=== PATIENT | female | born 1965 | race Caucasian/White ===

== ENCOUNTER → 2016-08-16 | Outpatient (CLI) | payer BC | LOC: MW.NM 06:18 | PROVIDERS: ATTEND Nurse Practitioner Adult Health | DX: R07.9 Chest pain, unspecified (principal); Z53.9 Procedure and treatment not carried out, unspecified reason ==

== ENCOUNTER 2016-12-02 20:26 | Emergency (ER) | payer BC ==
--- NOTE | 2016-12-02 20:40 | EDM.PDOC ---
ED HPI GENERAL MEDICAL PROBLEM - General Chief Complaint: Lower Extremity Injury/Pain Stated Complaint: PAIN LT ANKLE Time Seen by Provider: 12/02/16 20:30 Source of Information: Reports: Patient History Limitations: Reports: No Limitations - History of Present Illness INITIAL COMMENTS - FREE TEXT/NARRATIVE: HISTORY AND PHYSICAL: History of present illness: [Patient is brought to the emergency room by her daughter with complaints of left foot pain. The patient was pushed over by her dog that was running through the house. She felt like she rolled over the lateral aspect of her left foot falling to the ground. She complains of pain and swelling. No pain with palpation but is experiencing pain with weightbearing and movement of her foot and fourth and fifth toes. No previous surgeries or trauma to this area. No numbness or tingling. No weakness. No other injuries.] Review of systems: As per history of present illness and below otherwise all systems reviewed and negative. Past medical history: As per history of present illness and as reviewed below otherwise noncontributory. Surgical history: As per history of present illness and as reviewed below otherwise noncontributory. Social history: No reported history of drug or alcohol abuse. Family history: As per history of present illness and as reviewed below otherwise noncontributory. Physical exam: HEENT: Atraumatic, normocephalic. Extremities: Mild swelling to left lateral foot. No ecchymosis or erythema. Tender with palpation over 4th and 5th metatarsals. Pedal pulses are strong. Neurovascular unremarkable. Neuro: Awake, alert, oriented.Motor and sensory unremarkable throughout. Exam nonfocal. Diagnostics: [Left foot x-ray] Impression: [fracture of base 5th metatarsal, minimally displaced] Plan: [Patient is placed in a short leg posterior splint without difficulty. We discussed follow-up with orthopedist on Sunday. Rest ice compression and elevation. Wear the splint at all times. [id number] anti-inflammatories and analgesics as needed for discomfort. Return to ER as we discussed.] Definitive disposition and diagnosis as appropriate pending reevaluation and review of above. 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: Musculoskeletal History: Reports: None Neurological History: Reports: None Psychiatric History: Reports: Anxiety Endocrine/Metabolic History: Reports: None Hematologic History: Reports: None Immunologic History: Reports: None Oncologic (Cancer) History: Reports: None Dermatologic History: Reports: None - Infectious Disease History Infectious Disease History: Reports: Chicken Pox - Past Surgical History Female Surgical History: Reports: Section, Hysterectomy Social & Family History - Family History Family Medical History: Noncontributory - Tobacco Use Smoking Status *Q: Never Smoker - Caffeine Use Caffeine Use: Reports: None - Recreational Drug Use Recreational Drug Use: No Review of Systems - Review of Systems Review Of Systems: ROS reveals no pertinent complaints other than HPI. ED EXAM, GENERAL - Physical Exam Exam: See Below Course - Vital Signs Last Recorded V/S: Last Vital Signs Temp 98 F 12/02/16 20:28 Pulse 70 12/02/16 20:28 Resp 18 12/02/16 20:28 BP 170/79 H 12/02/16 20:28 Pulse Ox 98 12/02/16 20:28 - Orders/Labs/Meds Orders: Active Orders 24 hr Category Date Time Status Foot Comp Min 3V Lt [CR] Stat Exams 12/02/16 20:34 Taken Departure - Departure Time of Disposition: 21:30 Disposition: Home, Self-Care 01 Condition: Good Clinical Impression: Metatarsal fracture, Fracture of base of fifth metatarsal bone - Discharge Information Instructions: Crutch Use, [id number], Cast or Splint Care, Znlm-[id number], Metatarsal Fracture Referrals: PCP,None [Primary Care Provider] - Forms: ED Department Discharge Additional Instructions: The following information is given to patients seen in the emergency department who are being discharged to home. This information is to outline your options for follow-up care. We provide all patients seen in our emergency department with a follow-up referral. The need for follow-up, as well as the timing and circumstances, are variable depending upon the specifics of your emergency department visit. If you don't have a primary care physician on staff, we will provide you with a referral. We always advise you to contact your personal physician following an emergency department visit to inform them of the circumstance of the visit and for follow-up with them and/or the need for any referrals to a consulting specialist. The emergency department will also refer you to a specialist when appropriate. This referral assures that you have the opportunity for follow-up care with a specialist. All of these measure are taken in an effort to provide you with optimal care, which includes your follow-up. Under all circumstances we always encourage you to contact your private physician who remains a resource for coordinating your care. When calling for follow-up care, please make the office aware that this follow-up is from your recent emergency room visit. If for any reason you are refused follow-up, please contact the [facility] emergency department at and asked to speak to the emergency department charge nurse. [facility] [address], [address] [place] [address] Coulter of your fracture on Sunday and follow-up according to her instructions. Rest, ice, no weightbearing, wear splint, elevate leg. Xlib-mfv-iuxemtg analgesics and anti-inflammatories as needed for discomfort. Return to the emergency room as needed as discussed. - My Orders Last 24 Hours: My Active Orders 12/02/16 20:34 Foot Comp Min 3V Lt [CR] Stat - Assessment/Plan Last 24 Hours: My Active Orders 12/02/16 20:34 Foot Comp Min 3V Lt [CR] Stat
[2016-12-02 21:50] VITALS: BP 140/78
--- NOTE | 2016-12-04 12:58 | CR ---
EXAM DATE: 12/02/16 PATIENT'S AGE: 51 Patient: JOSE JUAN DURBIN Facility: [place], [place] Site . Site : 1965 Study: XRay Extremity Left FOOT [id number]/26/[id number] 8:55:22 PM Ordering Physician: Doctor Vega Final Report: Indication: Lateral left foot pain Technique: Three views left foot Comparison: None Findings: Bones: Alignment is normal. There is a minimally displaced fracture at the base of the right 5th metatarsal. Small inferior calcaneal enthesophyte noted. Joint spaces: Unremarkable. Soft tissues: Mild lateral soft tissue swelling. Impression: Minimally displaced fracture at the base of the right 5th metatarsal. Dictated by Irene Padilla MD @ Dec 02 2016 8:59PM (Electronic Signature) Report Signed by Proxy. OTIS
== END 2016-12-02 21:45 | disposition home or self-care (01) ==
LOC: MW.ED 20:26
DX: S92.352A Displaced fracture of fifth metatarsal bone, left foot, initial encounter for closed fracture (principal); I10 Essential (primary) hypertension; Z90.710 Acquired absence of both cervix and uterus; X50.9XXA Other and unspecified overexertion or strenuous movements or postures, initial encounter
CPT/HCPCS: 29515; 73630-26-LT; 73630-LT; 99283

== ENCOUNTER 2017-10-07 19:47 | Emergency (ER) | payer BC ==
--- NOTE | 2017-10-07 21:09 | EDM.PDOC ---
ED HPI GENERAL MEDICAL PROBLEM - General Chief Complaint: Lower Extremity Injury/Pain Stated Complaint: PAIN LT LEG Time Seen by Provider: 10/07/17 21:03 Source of Information: Reports: Patient History Limitations: Reports: No Limitations - History of Present Illness INITIAL COMMENTS - FREE TEXT/NARRATIVE: HISTORY AND PHYSICAL: []52-year-old female presents with left leg bruising and cramping History of Present Illness: []Admission saw Dr. Che in the office and was treated She became worse today and she is concerned that there is a blood clot in this leg Review of Systems: As per history of present illness and below otherwise all systems reviewed and negative. Past medical history: As per history of present illness and as reviewed below otherwise noncontributory. Surgical history: As per history of present illness and as reviewed below otherwise noncontributory. Social history: No reported history of drug or alcohol abuse. Family history: As per history of present illness and as reviewed below otherwise noncontributory. Physical exam: Learning oriented female answering questions in full sentences without any shortness of breath she is nontoxic in appearance HEENT: Atraumatic, normocehpalic, pupils reactive, negative for conjunctival pallor or scleral icterus, mucous membranes moist, throat clear, neck supple, nontender, trachea midline. Lungs: Clear to auscultation, breath sounds equal bilaterally, chest non tender. Heart: S1S2, regular, negative for clicks, rubs, or JVD. Abdomen: Soft, nondistended, nontender. Negative for masses or hepatossplenmegaly. Negative for costovertebral tenderness. Pelvis: Stable nontender. Genitourinary: Deferred. Rectal: Deferred Extremities: Atraumatic, negative for cords or calf pain. Some bruising is noted to the posterior left calf. Pedal pulses are intact Neurovascular unremarkable. Neuro: Awake, alert, oriented. Cranial nerves II through XII unremarkable. Cerebellum unremarkable. Motor and sensory unremarkable throughout. Exam nonfocal. Discussed with the patient the ultrasound is negative for DVT Diagnostics: []Venous Doppler Therapeutics: [] Impression: []Bruising left lower leg/calf Plan: []Discharge Using level is at the lower and of normal continue with your supplement 1 tablet daily Follow-up with Dr. Che Definitive disposition and diagnosis as appropriate pending reevaluation and review of above. Onset: Gradual Duration: Day(s): (3) Location: Reports: Lower Extremity, Left Quality: Reports: Throbbing Severity: Moderate Improves with: Reports: None Worsens with: Reports: None Associated Symptoms: Reports: No Other Symptoms left lower leg Pain Score (Numeric/FACES): 6 - Related Data Allergies Allergy/AdvReac Type Severity Reaction Status Date / Time No Known Allergies Allergy Verified 10/07/17 19:52 Home Meds: Home Meds Atenolol 25 mg PO BID 01/22/16 [History] Magnesium 250 mg PO DAILY 10/07/17 [History] Past Medical History - Past Health History Medical/Surgical History: Denies Medical/Surgical History HEENT History: Reports: None Cardiovascular History: Reports: Hypertension Respiratory History: Reports: None Gastrointestinal History: Reports: Diverticulosis Genitourinary History: Reports: None 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 Neurological History: Reports: None Psychiatric History: Reports: Anxiety Endocrine/Metabolic History: Reports: None Hematologic History: Reports: None Immunologic History: Reports: None Oncologic (Cancer) History: Reports: None Dermatologic History: Reports: None - Infectious Disease History Infectious Disease History: Reports: None - Past Surgical History Head Surgeries/Procedures: Reports: None Female Surgical History: Reports: Section, Hysterectomy Social & Family History - Family History Family Medical History: Noncontributory - Tobacco Use Smoking Status *Q: Never Smoker - Caffeine Use Caffeine Use: Reports: None - Recreational Drug Use Recreational Drug Use: No Review of Systems - Review of Systems Review Of Systems: ROS reveals no pertinent complaints other than HPI. ED EXAM, GENERAL - Physical Exam Exam: See Below (see dictation) Course - Vital Signs Last Recorded V/S: Last Vital Signs Temp 36.2 C 10/07/17 21:02 Pulse 72 10/07/17 21:02 Resp 18 10/07/17 21:02 BP 135/76 10/07/17 21:02 Pulse Ox 98 10/07/17 21:02 - Orders/Labs/Meds Orders: Active Orders 24 hr Category Date Time Status Venous Doppler Lwr Ext Lt [US] Stat Exams 10/07/17 19:57 Taken Labs: Laboratory Tests 10/07/17 Range/Units 20:07 Magnesium 1.9 (1.8-2.4) mg/dL Departure - Departure Time of Disposition: 21:07 Disposition: Home, Self-Care 01 Condition: Good Clinical Impression: Leg pain Qualifiers: Laterality: left Qualified Code(s): M79.605 - Pain in left leg - Discharge Information Referrals: Nyla Jaimes DO [Primary Care Provider] - Additional Instructions: The following information is given to patients seen in the emergency department who are being discharged to home. This information is to outline your options for follow-up care. We provide all patients seen in our emergency department with a follow-up referral. The need for follow-up, as well as the timing and circumstances, are variable depending upon the specifics of your emergency department visit. If you don't have a primary care physician on staff, we will provide you with a referral. We always advise you to contact your personal physician following an emergency department visit to inform them of the circumstance of the visit and for follow-up with them and/or the need for any referrals to a consulting specialist. The emergency department will also refer you to a specialist when appropriate. This referral assures that you have the opportunity for followup care with a specialist. All of these measure are taken in an effort to provide you with optimal care, which includes your followup. Under all circumstances we always encourage you to contact your private physician who remains a resource for coordinating your care. When calling for followup care, please make the office aware that this follow-up is from your recent emergency room visit. If for any reason you are refused follow-up, please contact the [facility] emergency department at and asked to speak to the emergency department charge nurse. No blood clot is noted on your ultrasound today Follow-up with Dr. Che at the clinic Any worsening of condition sharpness to chest or difficulty breathing return immediately to the emergency department - My Orders Last 24 Hours: My Active Orders 10/07/17 19:57 Venous Doppler Lwr Ext Lt [US] Stat - Assessment/Plan Last 24 Hours: My Active Orders 10/07/17 19:57 Venous Doppler Lwr Ext Lt [US] Stat
[2017-10-07 21:32] VITALS: BP 130/68
--- NOTE | 2017-10-08 19:06 | US ---
EXAM DATE: 10/07/17 PATIENT'S AGE: 52 Patient: JOSE JUAN DURBIN Facility: [place], [place] Site . Site : 1965 Study: US Extremity Left [id number]/1/[id number] 8:57:32 PM Ordering Physician: Doctor Vega Final Report: INDICATION: lt leg bruising INDICATION: Lower extremity pain and bruising. TECHNIQUE: Ultrasound venous duplex lower left extremity. Compression venous exam was performed using rodriguez-scale, color Doppler, and spectral Doppler analysis. COMPARISON: None. FINDINGS: Sonographic imaging demonstrates the left common femoral, deep femoral, superficial femoral, popliteal, posterior tibial and greater saphenous veins to be fully compressible with normal color Doppler blood flow. IMPRESSION: No DVT identified in the left lower extremity. Dictated by Nick Álvarez MD @ 10/07/2017 9:00:41 PM Dictated by: Nick Álvarez MD @ 10/07/2017 21:00:50 (Electronic Signature) Report Signed by Proxy. OTIS
== END 2017-10-07 21:25 | disposition home or self-care (01) ==
LOC: MW.ED 19:47
DX: S80.12XA Contusion of left lower leg, initial encounter (principal); X58.XXXA Exposure to other specified factors, initial encounter; Z79.899 Other long term (current) drug therapy; I10 Essential (primary) hypertension
CPT/HCPCS: 36415; 83735; 93971-26-LT; 93971-LT; 99283; 99284-25

== ENCOUNTER 2019-01-04 19:59 | Emergency (ER) | payer BC ==
--- NOTE | 2019-01-04 20:15 | EDM.PDOC ---
ED HPI GENERAL MEDICAL PROBLEM - General Chief Complaint: Lower Extremity Injury/Pain Stated Complaint: INJURED KNEE Time Seen by Provider: 01/04/19 20:15 Source of Information: Reports: Patient - History of Present Illness INITIAL COMMENTS - FREE TEXT/NARRATIVE: HISTORY AND PHYSICAL: History of present illness: [Patient was walking her dog, the dog began to kina a Pulling her on the with the leash she slid down 3 steps at 11 AM this morning landing on her right knee pains of right knee pain with ambulation no fever nausea vomiting chills sweats no other pain or injury no head injury or loss of consciousness ] Review of systems: As per history of present illness and below otherwise all systems reviewed and negative. Past medical history: As per history of present illness and as reviewed below otherwise noncontributory. Surgical history: As per history of present illness and as reviewed below otherwise noncontributory. Social history: No reported history of drug or alcohol abuse. Family history: As per history of present illness and as reviewed below otherwise noncontributory. Physical exam: HEENT: Atraumatic, normocephalic, pupils reactive, negative for conjunctival pallor or scleral icterus, mucous membranes moist, throat clear, neck supple, nontender, trachea midline. Lungs: Clear to auscultation, breath sounds equal bilaterally, chest nontender. Heart: S1S2, regular, negative for clicks, rubs, or JVD. Abdomen: Soft, nondistended, nontender. Negative for masses or hepatosplenomegaly. Negative for costovertebral tenderness. Pelvis: Stable nontender. Genitourinary: Deferred. Rectal: Deferred. Extremities: Atraumatic, negative for cords or calf pain. Neurovascular unremarkable. Neuro: Awake, alert, oriented. Cranial nerves II through XII unremarkable. Cerebellum unremarkable. Motor and sensory unremarkable throughout. Exam nonfocal. Diagnostics: [Knee 3 views ] Therapeutics: [Patient refused knee immobilizer or Odell wrapping however she will take crutches Rest ice ibuprofen Follow-up with orthopedist ] Impression: [ right knee injury ] Definitive disposition and diagnosis as appropriate pending reevaluation and review of above. 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 Neurological History: Reports: None Psychiatric History: Reports: Anxiety Endocrine/Metabolic History: Reports: None Hematologic History: Reports: None Immunologic History: Reports: None Oncologic (Cancer) History: Reports: None Dermatologic History: Reports: None - Infectious Disease History Infectious Disease History: Reports: None - Past Surgical History Head Surgeries/Procedures: Reports: None Female Surgical History: Reports: Section, Hysterectomy Social & Family History - Family History Family Medical History: Noncontributory - Caffeine Use Caffeine Use: Reports: None Review of Systems - Review of Systems Review Of Systems: See Below ED EXAM, GENERAL - Physical Exam Exam: See Below Course - Vital Signs Last Recorded V/S: Last Vital Signs Temp 96.6 F 01/04/19 20:20 Pulse 67 01/04/19 20:20 Resp 16 01/04/19 20:20 BP 133/58 L 01/04/19 20:20 Pulse Ox 94 L 01/04/19 20:20 Departure - Departure Time of Disposition: 21:05 Disposition: Home, Self-Care 01 Condition: Good Clinical Impression: Right knee injury - Discharge Information Forms: ED Department Discharge Additional Instructions: Rest Ice 20 minute intervals 3 times daily Ibuprofen 400 mgTimes daily 7-10 days Follow-up with orthopedist, call phone number below to schedule appropriate follow-up [facility] [address], [address] [place] [address] my orthopedic The following information is given to patients seen in the emergency department who are being discharged to home. This information is to outline your options for follow-up care. We provide all patients seen in our emergency department with a follow-up referral. The need for follow-up, as well as the timing and circumstances, are variable depending upon the specifics of your emergency department visit. If you don't have a primary care physician on staff, we will provide you with a referral. We always advise you to contact your personal physician following an emergency department visit to inform them of the circumstance of the visit and for follow-up with them and/or the need for any referrals to a consulting specialist. The emergency department will also refer you to a specialist when appropriate. This referral assures that you have the opportunity for follow-up care with a specialist. All of these measure are taken in an effort to provide you with optimal care, which includes your follow-up. Under all circumstances we always encourage you to contact your private physician who remains a resource for coordinating your care. When calling for follow-up care, please make the office aware that this follow-up is from your recent emergency room visit. If for any reason you are refused follow-up, please contact the [facility] emergency department at and asked to speak to the emergency department charge nurse.
--- NOTE | 2019-01-04 20:48 | CR ---
INDICATION: Fall TECHNIQUE: Right knee 3 views. COMPARISON: None. FINDINGS: Bones: Alignment is normal. No fractures or bone lesions. Joint spaces: Unremarkable. Soft tissues: Unremarkable. IMPRESSION: Unremarkable right knee. Dictated by: Baldomero Ashby MD @ 01/04/2019 20:47:04 (Electronically Signed)
[2019-01-04 21:42] VITALS: BP 126/66; PULSE 69
== END 2019-01-04 21:25 | disposition home or self-care (01) ==
LOC: MW.ED 19:59
DX: S89.91XA Unspecified injury of right lower leg, initial encounter (principal); I10 Essential (primary) hypertension; Z79.899 Other long term (current) drug therapy; W10.9XXA Fall (on) (from) unspecified stairs and steps, initial encounter; Y93.K1 Activity, walking an animal
CPT/HCPCS: 73562-26-RT; 73562-RT; 99283-25

== ENCOUNTER 2020-02-08 14:41 | Emergency (ER) | payer BC ==
[2020-02-08] MEDS ORDERED: Sodium Chloride 0.9% 1,000 ML IV ONE (15:01)
--- NOTE | 2020-02-08 15:25 | EDM.PDOC ---
ED HPI GENERAL MEDICAL PROBLEM - General Chief Complaint: Abdominal Pain Stated Complaint: ABDOMINAL PAIN Time Seen by Provider: 02/08/20 14:45 Source of Information: Reports: Patient History Limitations: Reports: No Limitations - History of Present Illness INITIAL COMMENTS - FREE TEXT/NARRATIVE: HISTORY AND PHYSICAL: History of present illness: Patient is a 54-year-old female who presents to the emergency room with complaints of nausea, right lower quadrant abdominal pain and the sensation of feeling bloated since last night. States the pain fluctuates between dull and sharp stabbing discomfort. Had a small BM this morning, but has not passed gas today and feels bloated. Patient denies any fever, chills, headache, change in vision, syncope or near syncope. Denies any chest pain, back pain, shortness of breath or cough. Denies any vomiting, diarrhea, constipation or dysuria. Has not noted any blood in urine or stool. Denies any vaginal bleeding or discharge. Had a partial hysterectomy in the past. Patient has been eating and drinking appropriately. Review of systems: As per history of present illness and below otherwise all systems reviewed and negative. Past medical history: As per history of present illness and as reviewed below otherwise noncontributory. Surgical history: As per history of present illness and as reviewed below otherwise noncontrib utory. Social history: See social history for further information Family history: As per history of present illness and as reviewed below otherwise noncontributory. Physical exam: General: Well developed and well nourished. Alert and orientated x 3. Nontoxic in appearance and in no acute distress. Vital signs are stable and have been reviewed by me. Nursing notes were reviewed. HEENT: Atraumatic, normocephalic, pupils equal and reactive bilaterally, negative for conjunctival pallor or scleral icterus, mucous membranes moist, TMs normal bilaterally, throat clear, neck supple, nontender, trachea midline. No drooling or trismus noted. No meningeal signs. No hot potato voice noted. Lungs: Clear to auscultation, breath sounds equal bilaterally, chest nontender. Normal work of breathing, no accessory muscles used. Heart: S1S2, regular rate and rhythm without overt murmur Abdomen: Soft, obese, RLQ tenderness. Negative for masses or hepatosplenomegaly. Negative for costovertebral tenderness. Skin: Intact, warm, dry. No lesions or rashes noted. Hematologic: No petechiae or purpra. Mucosa appropriate color and normal nail bed color and refill. Extremities: Atraumatic, moves all extremities per self without difficulty or deficits, negative for cords or calf pain. Neurovascular unremarkable. Neuro: Awake, alert, oriented. Cranial nerves II through XII unremarkable. Cerebellum unremarkable. Motor and sensory unremarkable throughout. Exam nonfocal. Psychiatric: Mood and affect are appropriate. Normal thought process. Answering questions appropriately. Notes: Patient does have a slight leukocytosis, other labs are unremarkable. COVID-[address] of the abdomen and pelvis shows no kidney stones, normal appendix, bilateral ovarian cysts. Patient's pain has improved since being here. I have spoken with the patient/caregiver and discussed today's findings, in addition to providing specific details for plan of care. Recommended she have outpatient ultrasound for further evaluation of the ovarian cyst. the patient is stable for discharge, counseling was provided and we discussed in great detail signs and symptoms that would prompt them to return to the Emergency Department. Medication, follow up and supportive care measures were reviewed and discussed. Voices understanding and is agreeable to plan of care. Denies any further questions or concerns at this time. Diagnostics: CBC, CMP, HCGU, UA, CT abd/pelvis Therapeutics: IV fluids Prescription: None Impression: Ovarian Cyst Plan: 1. Today your CT shows 4.7 x 4.1 cm cyst on the right ovary and a 2.3 x 2.2 cm ovary on the left. Otherwise the CT scan was normal for your kidneys, appendix, bowel, pancreas and liver. At this time an ultrasound was held, if you continue to have pain you should return for reevaluation or follow-up with your SECONDARY MARKET MANAGER. Gentle heat to the area and alternating Tylenol and ibuprofen as we discussed. 2. We encourage you to follow up with your primary care provider and/or recommended specialist in the next few days for re-evaluation and further care/management. 3. If your symptoms should worsen, new symptoms develop or any of the signs and symptoms we discussed should arise please return to the emergency room or call 911 (if needed). Definitive disposition and diagnosis as appropriate pending reevaluation and review of above. - Related Data Allergies Allergy/AdvReac Type Severity Reaction Status Date / Time No Known Allergies Allergy Verified 02/08/20 14:50 Home Meds: Home Meds atenoloL [Atenolol] 25 mg PO BID 01/22/16 [History] Magnesium 500 mg PO DAILY 10/07/17 [History] Ascorbate Calcium [Vitamin C] 1 tab PO ASDIRECTED 02/08/20 [History] Cholecalciferol (Vitamin D3) [Vitamin D] 1 tab PO ASDIRECTED 02/08/20 [History] Past Medical History - Past Health History Medical/Surgical History: Denies Medical/Surgical History HEENT History: Reports: None Cardiovascular History: Reports: Hypertension Respiratory History: Reports: None Gastrointestinal History: Reports: Diverticulosis Genitourinary History: Reports: None 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: Musculoskeletal History: Reports: Fracture Neurological History: Reports: None Psychiatric History: Reports: Anxiety Endocrine/Metabolic History: Reports: None Hematologic History: Reports: None Immunologic History: Reports: None Oncologic (Cancer) History: Reports: None Dermatologic History: Reports: None - Infectious Disease History Infectious Disease History: Reports: None - Past Surgical History Head Surgeries/Procedures: Reports: None Female Surgical History: Reports: Section, Hysterectomy Social & Family History - Family History Family Medical History: Noncontributory - Tobacco Use Tobacco Use Status *Q: Never Tobacco User - Caffeine Use Caffeine Use: Reports: None - Recreational Drug Use Recreational Drug Use: No ED ROS GENERAL - Review of Systems Review Of Systems: Comprehensive ROS is negative, except as noted in HPI. ED EXAM, GI/ABD - Physical Exam Exam: See Below (See dictation) Course - Vital Signs Last Recorded V/S: Last Vital Signs Temp 97.4 F 02/08/20 18:05 Pulse 74 02/08/20 18:05 Resp 18 02/08/20 18:05 BP 133/77 02/08/20 18:05 Pulse Ox 96 02/08/20 18:05 - Orders/Labs/Meds Labs: Laboratory Tests 02/08/20 02/08/20 02/08/20 Range/Units 15:20 15:20 15:30 WBC 13.24 H (4.0-11.0) K/uL RBC 4.44 (4.30-5.90) M/uL Hgb 13.1 (12.0-16.0) g/dL Hct 40.0 (36.0-46.0) % MCV 90.1 (80.0-98.0) fL MCH 29.5 (27.0-32.0) pg MCHC 32.8 (31.0-37.0) g/dL RDW Std Deviation 44.9 (28.0-62.0) fl RDW Coeff of Rory 14 (11.0-15.0) % Plt Count 297 (150-400) K/uL MPV 9.10 (7.40-12.00) fL Neut % (Auto) 66.9 (48.0-80.0) % Lymph % (Auto) 27.6 (16.0-40.0) % Coal % (Auto) 4.6 (0.0-15.0) % Eos % (Auto) 0.7 (0.0-7.0) % Baso % (Auto) 0.2 (0.0-1.5) % Neut # (Auto) 8.9 H (1.4-5.7) K/uL Lymph # (Auto) 3.7 H (0.6-2.4) K/uL Coal # (Auto) 0.6 (0.0-0.8) K/uL Eos # (Auto) 0.1 (0.0-0.7) K/uL Baso # (Auto) 0.0 (0.0-0.1) K/uL Nucleated RBC % 0.0 /100WBC Nucleated RBCs # 0 K/uL Sodium (136-145) mmol/L Potassium (3.5-5.1) mmol/L Chloride (98-107) mmol/L Carbon Dioxide (21.0-32.0) mmol/L BUN (7.0-18.0) mg/dL Creatinine (0.6-1.0) mg/dL Est Cr Clr Drug Dosing mL/min Estimated GFR (MDRD) ml/min Glucose (74-106) mg/dL Calcium (8.5-10.1) mg/dL Total Bilirubin (0.2-1.0) mg/dL AST (15-37) IU/L ALT (14-63) IU/L Alkaline Phosphatase (46-116) U/L Total Protein (6.4-8.2) g/dL Albumin (3.4-5.0) g/dL Globulin (2.6-4.0) g/dL Albumin/Globulin Ratio (0.9-1.6) Urine Color YELLOW Urine Appearance CLEAR Urine pH 6.0 (5.0-8.0) Ur Specific [place] 1.015 (1.001-1.035) Urine Protein NEGATIVE (NEGATIVE) mg/dL Urine Glucose (UA) NEGATIVE (NEGATIVE) mg/dL Urine Ketones NEGATIVE (NEGATIVE) mg/dL Urine Occult Blood TRACE-INTACT H (NEGATIVE) Urine Nitrite NEGATIVE (NEGATIVE) Urine Bilirubin NEGATIVE (NEGATIVE) Urine Urobilinogen 0.2 (<2.0) EU/dL Ur Leukocyte Esterase NEGATIVE (NEGATIVE) Urine RBC 0-2 (0-2/HPF) Urine WBC 0-2 (0-5/HPF) Ur Epithelial Cells FEW (NONE-FEW) Urine Bacteria FEW (NEGATIVE) Urine HCG, Qual NEGATIVE (NEGATIVE) SARS-CoV-2 (PCR) (NOT DETECT) SARS CoV-2 RNA Rapid ABBEY (NEGATIVE) 02/08/20 02/08/20 02/08/20 Range/Units 15:30 15:40 15:40 WBC (4.0-11.0) K/uL RBC (4.30-5.90) M/uL Hgb (12.0-16.0) g/dL Hct (36.0-46.0) % MCV (80.0-98.0) fL MCH (27.0-32.0) pg MCHC (31.0-37.0) g/dL RDW Std Deviation (28.0-62.0) fl RDW Coeff of Rory (11.0-15.0) % Plt Count (150-400) K/uL MPV (7.40-12.00) fL Neut % (Auto) (48.0-80.0) % Lymph % (Auto) (16.0-40.0) % Coal % (Auto) (0.0-15.0) % Eos % (Auto) (0.0-7.0) % Baso % (Auto) (0.0-1.5) % Neut # (Auto) (1.4-5.7) K/uL Lymph # (Auto) (0.6-2.4) K/uL Coal # (Auto) (0.0-0.8) K/uL Eos # (Auto) (0.0-0.7) K/uL Baso # (Auto) (0.0-0.1) K/uL Nucleated RBC % /100WBC Nucleated RBCs # K/uL Sodium 138 (136-145) mmol/L Potassium 3.6 (3.5-5.1) mmol/L Chloride 103 (98-107) mmol/L Carbon Dioxide 24.8 (21.0-32.0) mmol/L BUN 10 (7.0-18.0) mg/dL Creatinine 0.8 (0.6-1.0) mg/dL Est Cr Clr Drug Dosing 74.02 mL/min Estimated GFR (MDRD) > 60.0 ml/min Glucose 112 H (74-106) mg/dL Calcium 8.6 (8.5-10.1) mg/dL Total Bilirubin 0.3 (0.2-1.0) mg/dL AST 14 L (15-37) IU/L ALT 19 (14-63) IU/L Alkaline Phosphatase 81 (46-116) U/L Total Protein 7.1 (6.4-8.2) g/dL Albumin 3.5 (3.4-5.0) g/dL Globulin 3.6 (2.6-4.0) g/dL Albumin/Globulin Ratio 1.0 (0.9-1.6) Urine Color Urine Appearance Urine pH (5.0-8.0) Ur Specific [place] (1.001-1.035) Urine Protein (NEGATIVE) mg/dL Urine Glucose (UA) (NEGATIVE) mg/dL Urine Ketones (NEGATIVE) mg/dL Urine Occult Blood (NEGATIVE) Urine Nitrite (NEGATIVE) Urine Bilirubin (NEGATIVE) Urine Urobilinogen (<2.0) EU/dL Ur Leukocyte Esterase (NEGATIVE) Urine RBC (0-2/HPF) Urine WBC (0-5/HPF) Ur Epithelial Cells (NONE-FEW) Urine Bacteria (NEGATIVE) Urine HCG, Qual (NEGATIVE) SARS-CoV-2 (PCR) NOT DETECTED (NOT DETECT) SARS CoV-2 RNA Rapid ABBEY NEGATIVE (NEGATIVE) Meds: Medications Discontinued Medications Generic Name Dose Route Start Last Admin Trade Name Freq PRN Reason Stop Dose Admin Sodium Chloride 1,000 mls @ 999 mls/hr 02/08/20 15:01 02/08/20 15:34 Normal Saline IV 02/08/20 16:01 999 mls/hr STAT ONE Administration Iopamidol 100 ml 02/08/20 16:42 02/08/20 16:42 Isovue Multipack-370 (76%) IVPUSH 02/08/20 16:43 100 ml ONETIME ONE Administration Departure - Departure Time of Disposition: 17:57 Disposition: Home, Self-Care 01 Clinical Impression: Ovarian cyst Qualifiers: Laterality: bilateral Qualified Code(s): N83.201 - Unspecified ovarian cyst, right side; N83.202 - Unspecified ovarian cyst, left side - Discharge Information Instructions: Ovarian Cyst, [id number] Referrals: Margret Cote NP [Primary Care Provider] - Forms: ED Department Discharge Additional Instructions: The following information is given to patients seen in the emergency department who are being discharged to home. This information is to outline your options for follow-up care. We provide all patients seen in our emergency department with a follow-up referral. The need for follow-up, as well as the timing and circumstances, are variable depending upon the specifics of your emergency department visit. If you don't have a primary care physician on staff, we will provide you with a referral. We always advise you to contact your personal physician following an emergency department visit to inform them of the circumstance of the visit and for follow-up with them and/or the need for any referrals to a consulting specialist. The emergency department will also refer you to a specialist when appropriate. This referral assures that you have the opportunity for follow-up care with a specialist. All of these measure are taken in an effort to provide you with optimal care, which includes your follow-up. Under all circumstances we always encourage you to contact your private physician who remains a resource for coordinating your care. When calling for follow-up care, please make the office aware that this follow-up is from your recent emergency room visit. If for any reason you are refused follow-up, please contact the [facility] Emergency Department at and asked to speak to the emergency department charge nurse. [facility] [address] [place] [id number] [place] [address] Thank you for choosing the [facility] emergency department in [place] for your medical needs today. It was a pleasure caring for you. Today you were seen in the emergency department for abdominal pain. 1. Today your CT shows 4.7 x 4.1 cm cyst on the right ovary and a 2.3 x 2.2 cm ovary on the left. Otherwise the CT scan was normal for your kidneys, appendix, bowel, pancreas and liver. At this time an ultrasound was held, if you continue to have pain you should return for reevaluation or follow-up with your SECONDARY MARKET MANAGER. Gentle heat to the area and alternating Tylenol and ibuprofen as we discussed. 2. We encourage you to follow up with your primary care provider and/or recommended specialist in the next few days for re-evaluation and further care/management. 3. If your symptoms should worsen, new symptoms develop or any of the signs and symptoms we discussed should arise please return to the emergency room or call 911 (if needed). Sepsis Event Note (ED) - Evaluation Sepsis Screening Result: No Definite Risk
[2020-02-08 16:10] LABS: BLOOD UREA NITROGEN,BUN 10 mg/dL (7.0-18.0); CARBON DIOXIDE,CO2 24.8 mmol/L (21.0-32.0); CHLORIDE,CL 103 mmol/L (98-107); GLUCOSE RANDOM 112 mg/dL (74-106); POTASSIUM,K 3.6 mmol/L (3.5-5.1); SODIUM,NA 138 mmol/L (136-145)
[2020-02-08] MEDS ORDERED: Iopamidol 755 MG/ML 500 ML Multipack Bottle IVPUSH ONE (16:42)
--- NOTE | 2020-02-08 17:48 | CT ---
INDICATION: Right lower quadrant abdominal pain. COMPARISON: None. TECHNIQUE: CT abdomen and pelvis with intravenous contrast; coronal and sagittal reformats. FINDINGS: No abnormal intra pulmonary nodular densities through the lung bases. No evidence of pleural effusion. Normal size cardiac silhouette without any evidence of pericardial effusion. No focal hepatic or splenic pathology. No pancreatic pathology. Gallbladder is unremarkable. No adrenal pathology. No kidney stones or obstructive uropathy. No retroperitoneal lymphadenopathy. No evidence of abdominal or pelvic ascites. Normal appendix. No pneumoperitoneum or intestinal obstruction. Status post hysterectomy. A 4.7 x 4.1 cm cyst right adnexa and a 2.3 x 2.2 cm cyst in the left adnexa. No free fluid identified in the cul de sac. IMPRESSION: 1. No kidneys stones or obstructive uropathy. 2. Normal appendix. 3. Bilateral ovarian cysts; pelvic ultrasound suggested for further assessment. 4. Status post hysterectomy. 5. The cause for the patient`s right lower quadrant abdominal pain is not evident on this CT study. Please note that all CT scans at this facility use dose modulation, iterative reconstruction, and/or weight-based dosing when appropriate to reduce radiation dose to as low as reasonably achievable. Dictated by Sudhir Lew MD @ Feb 08 2020 5:38PM Signed by Dr. Sudhir Lew @ Feb 08 2020 5:47PM
[2020-02-08 19:11] VITALS: BP 133/77; PULSE 74
== END 2020-02-08 18:10 | disposition home or self-care (01) ==
LOC: MW.ED 14:41
DX: N83.202 Unspecified ovarian cyst, left side (principal); N83.201 Unspecified ovarian cyst, right side; I10 Essential (primary) hypertension; Z20.828 Contact with and (suspected) exposure to other viral communicable diseases; Z79.899 Other long term (current) drug therapy
CPT/HCPCS: 74177; 80053; 81001; 81025; 85025; 87635; 99284; J7030; Q9967; U0002

== ENCOUNTER 2020-05-30 23:09 | Emergency (ER) | payer BC ==
--- NOTE | 2020-05-31 00:05 | EDM.PDOC ---
ED HPI GENERAL MEDICAL PROBLEM - General Chief Complaint: Cardiovascular Problem Stated Complaint: HIGH BLOOD PRESSURE Time Seen by Provider: 05/30/20 23:42 - History of Present Illness INITIAL COMMENTS - FREE TEXT/NARRATIVE: HISTORY AND PHYSICAL: History of present illness: Is a 54-year-old female with a history significant for hypertension who presents ER today secondary to an elevated blood pressure at home. Patient reports her blood pressure was 165/106 and she got concerned and came to the ER. Patient reports that her blood pressure is usually in the range of 130/80. Patient reports that she was asymptomatic at that time. Patient has any fevers, shakes, chills, nausea, vomiting, diarrhea, dysuria, frequency, urgency, chest pain, shortness of breath, diaphoresis, double vision, blurred vision. Patient reports that she did have a slight headache with tension in her neck. Patient reports that this began prior to checking her blood pressure. Patient reports that she only takes atenolol 25 mg twice a day for her hypertension. Patient reports that when her blood pressure was elevated she took 2 additional doses over the course of approximately 1 hour and her blood pressure remained elevated so she came to the ED for further evaluation. Review of systems: As per history of present illness and below otherwise all systems reviewed and negative. Past medical history: As per history of present illness and as reviewed below otherwise noncontributory. Surgical history: As per history of present illness and as reviewed below otherwise noncontributory. Social history: No reported history of drug or alcohol abuse. Family history: As per history of present illness and as reviewed below otherwise noncontributory. Physical exam: This patient was seen and evaluated during the 2019 SARS-CoV-2 novel coronavirus pandemic period. Community viral transmission is ongoing at time of this encounter and the emergency department is operating under pandemic response procedures. Constitutional: Patient is oriented to person, place, and time. Appears well- developed and well-nourished. No distress. HEENT: Moist mucous membranes Head: Normocephalic and atraumatic Eyes: Right eye exhibits no discharge. Left eye exhibits no discharge. No scleral icterus Neck: Normal range of motion. No tracheal deviation present. Cardiovascular: Normal rate and regular rhythm. Pulmonary: Effort normal, no respiratory distress. Abdominal: No distention Musculoskeletal: Normal range of motion Neurologic: Alert and oriented to person, place and time. Skin: [place], warm and dry. Psychiatric: Normal mood and affect. Behavior is normal. Judgment and thought content normal. Nursing note and vital signs have been reviewed Blood pressure repeated in the ED 136/62 heart rate 79. Repeat blood pressure 138/64 heart rate 78 Assessment and plan: This is a 54-year-old female who presents ER today secondary to elevated blood pressure while at home checked on her wrist with her blood pressure machine. Patient reports that she took an additional 50 mg of atenolol over the course of approximately 1 hour period. Patient reports that she is asymptomatic and said no chest pain and her elevated blood pressure was incidentally found. Patient's blood pressure here in the ED with blood pressure cuff was back to her normal range and he feels much more comfortable at this time. Patient is requesting to be discharged she will follow up with her primary care physician tomorrow for reevaluation of any changes of her blood pressure medications. Patient understand that she will need to return to the ED if she develops any new or concerning symptoms. Reassessment at the time of disposition demonstrates that the patient is in no acute distress. The patient has remained stable throughout the entire ED visit and is without objective evidence for acute process requiring urgent intervention or hospitalization. The patient is stable for discharge, counseling is provided as documented above, discussed symptomatic treatment and specific conditions for return. I have spoken with the patient/caregiver and discussed todays findings, in addition to providing specific details for the plan of care. Questions are answered and there is agreement with the plan. Definitive disposition and diagnosis as appropriate pending reevaluation and review of above. - Related Data Allergies Allergy/AdvReac Type Severity Reaction Status Date / Time No Known Allergies Allergy Verified 05/30/20 23:19 Home Meds: Home Meds atenoloL [Atenolol] 25 mg PO BID 01/22/16 [History] Magnesium 500 mg PO DAILY 10/07/17 [History] Cholecalciferol (Vitamin D3) [Vitamin D] 1 tab PO ASDIRECTED 02/08/20 [History] Past Medical History - Past Health History Medical/Surgical History: Denies Medical/Surgical History HEENT History: Reports: None Cardiovascular History: Reports: Hypertension Respiratory History: Reports: None Gastrointestinal History: Reports: Diverticulosis Genitourinary History: Reports: None 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: Musculoskeletal History: Reports: Fracture Neurological History: Reports: None Psychiatric History: Reports: Anxiety Endocrine/Metabolic History: Reports: None Hematologic History: Reports: None Immunologic History: Reports: None Oncologic (Cancer) History: Reports: None Dermatologic History: Reports: None - Infectious Disease History Infectious Disease History: Reports: Chicken Pox - Past Surgical History Head Surgeries/Procedures: Reports: None Female Surgical History: Reports: Section, Hysterectomy Social & Family History - Family History Family Medical History: No Pertinent Family History - Tobacco Use Tobacco Use Status *Q: Never Tobacco User - Caffeine Use Caffeine Use: Reports: None - Recreational Drug Use Recreational Drug Use: No ED ROS GENERAL - Review of Systems Review Of Systems: See Below ED EXAM, GENERAL - Physical Exam Exam: See Below Course - Vital Signs Last Recorded V/S: Last Vital Signs Temp 97.3 F 05/30/20 23:20 Pulse 85 05/30/20 23:20 Resp 20 05/30/20 23:20 BP 162/89 H 05/30/20 23:20 Pulse Ox 96 05/30/20 23:20 Departure - Departure Time of Disposition: 00:04 Disposition: Home, Self-Care 01 Condition: Good Clinical Impression: Hypertension Qualifiers: Hypertension type: essential hypertension Qualified Code(s): I10 - Essential (primary) hypertension Instructions: Hypertension, Adult, [id number] Referrals: Margret Cote NP [Primary Care Provider] - Additional Instructions: You were seen and evaluated in the ER today secondary to your elevated blood pressure at home. Your blood pressure here in the ED appears to have normalized after taking your additional atenolol 25 mg x 2 doses. Please make an appointment to see your family doctor the next 1 to 2 days to repeat your blood pressure to decide whether or not they want to adjust your hypertensive medications. Please return to the ER if you start developing any new or concerning symptoms such as severe headaches, chest pain, double vision, slurred speech, weakness to your upper or lower extremities on your left or right side. The following information is given to patients seen in the emergency department who are being discharged to home. This information is to outline your options for follow-up care. We provide all patients seen in our emergency department with a follow-up referral. The need for follow-up, as well as the timing and circumstances, are variable depending upon the specifics of your emergency department visit. If you don't have a primary care physician on staff, we will provide you with a referral. We always advise you to contact your personal physician following an emergency department visit to inform them of the circumstance of the visit and for follow-up with them and/or the need for any referrals to a consulting specialist. The emergency department will also refer you to a specialist when appropriate. This referral assures that you have the opportunity for follow-up care with a specialist. All of these measure are taken in an effort to provide you with optimal care, which includes your follow-up. Under all circumstances we always encourage you to contact your private physician who remains a resource for coordinating your care. When calling for follow-up care, please make the office aware that this follow-up is from your recent emergency room visit. If for any reason you are refused follow-up, please contact the [facility] Emergency Department at and asked to speak to the emergency department charge nurse. [facility] - [facility] [address] [place] [id number] [facility] [address] [place] [id number] Sepsis Event Note (ED) - Evaluation Sepsis Screening Result: No Definite Risk - Focused Exam Vital Signs: Vital Signs Temp Pulse Resp BP Pulse Ox 05/30/20 23:20 97.3 F 85 20 162/89 H 96
[2020-05-31 00:23] VITALS: BP 132/56; PULSE 71
== END 2020-05-31 00:23 | disposition home or self-care (01) ==
LOC: MW.ED 23:09
DX: I10 Essential (primary) hypertension (principal); Z79.899 Other long term (current) drug therapy
CPT/HCPCS: 99282; 99283

== ENCOUNTER 2021-07-23 15:43 | Emergency (ER) | payer BC ==
[2021-07-23] MEDS ORDERED: cefTRIAXone 1 GM Vial IM ONE (16:53)
[2021-07-23] MEDS ORDERED: Lidocaine 1% PF 2 ML SDV INJECT ONE (16:53)
[2021-07-23] MEDS ORDERED: Phenazopyridine 200 MG Tab PO ONE (16:55)
[2021-07-23 19:30] VITALS: BP 142/81; PULSE 93
== END 2021-07-23 17:34 | disposition home or self-care (01) ==
LOC: MW.ED 15:43
DX: N39.0 Urinary tract infection, site not specified (principal); I10 Essential (primary) hypertension
CPT/HCPCS: 81001; 96372; 99283; A9270; J0696

== ENCOUNTER 2022-10-07 00:57 | Emergency (ER) | payer BC ==
[2022-10-07] MEDS ORDERED: Sodium Chloride 0.9% 2.5 ML Syringe FLUSH PRN (01:15)
[2022-10-07] MEDS ORDERED: Sodium Chloride 0.9% 10 ML Syringe FLUSH PRN (01:15)
[2022-10-07] MEDS ORDERED: Sodium Chloride 0.9% 1,000 ML IV ONE (01:15)
[2022-10-07 01:34] LABS: BASOPHILS PERCENT AUTO 0.2 % (0.0-1.5); EOSINOPHILS ABSOLUTE AUTO 0.3 K/uL (0.0-0.7); EOSINOPHILS PERCENT AUTO 2.3 % (0.0-7.0); HEMATOCRIT 42.6 % (36.0-46.0); HEMOGLOBIN 14.2 g/dL (12.0-16.0); LYMPHOCYTES PERCENT AUTO 48.1 % (16.0-40.0); MEAN CORPUSCULAR HGB CONC 33.3 g/dL (31.0-37.0); MEAN CORPUSCULAR VOLUME 86.9 fL (80.0-98.0); MONOCYTES ABSOLUTE AUTO 0.9 K/uL (0.0-0.8); MONOCYTES PERCENT AUTO 6.9 % (0.0-15.0); NEUTROPHILS ABSOLUTE AUTO 5.3 K/uL (1.4-5.7); NEUTROPHILS PERCENT AUTO 42.5 % (48.0-80.0); NRBC ABSOLUTE 0 K/uL; PLATELET COUNT,PLT 282 K/uL (150-400)
[2022-10-07 02:01] LABS: ALBUMIN 3.8 g/dL (3.4-5.0); BILIRUBIN TOTAL 0.3 mg/dL (0.2-1.0); CALCIUM 8.8 mg/dL (8.5-10.1); CARBON DIOXIDE,CO2 23.9 mmol/L (21.0-32.0); CREATININE 0.9 mg/dL (0.6-1.0); EST CRCL DRUG DOSING (CG) 63.55 mL/min; PROTEIN TOTAL,TP 7.7 g/dL (6.4-8.2); TSH ULTRASENSITIVE 3.73 uIU/mL (0.36-3.74)
[2022-10-07] MEDS ORDERED: Metoprolol Tartrate 2.5 MG in Sodium Chloride 0.9% 50 ML IV ONE (02:36)
[2022-10-07] MEDS ORDERED: Sodium Chloride 0.9% 500 ML IV SCH (02:45)
[2022-10-07 03:16] VITALS: BP 116/72; PULSE 88
== END 2022-10-07 03:14 | disposition home or self-care (01) ==
LOC: MW.ED 00:57
DX: M62.838 Other muscle spasm (principal); I10 Essential (primary) hypertension; Z79.899 Other long term (current) drug therapy; Z98.890 Other specified postprocedural states
CPT/HCPCS: 36415; 80053; 84443; 85025; 93005; 96360; 99283; J3490; J7030; 93010

== ENCOUNTER 2023-10-30 10:16 | Day surgery (SDC) | payer BC ==
[~2023-10-30 10:16] MED LIST: Sodium Chloride 0.9% 10 ML Syringe FLUSH PRN; Sodium Chloride 0.9% 2.5 ML Syringe FLUSH PRN; Sodium Chloride 0.9% 20 ML SDV IV PRN
[2023-10-30] MEDS: Lactated Ringers 1,000 ML IV SCH (11:58)
[2023-10-30] MEDS ORDERED: propofoL 50 ML ONE (12:54)
[2023-10-30] MEDS ORDERED: fentaNYL 100 MCG/2 ML SDV ONE (13:17)
[2023-10-30 15:02] VITALS: BP 120/66; PULSE 60
== END 2023-10-30 14:15 | disposition home or self-care (01) ==
LOC: MW.SDS 10:16
PROVIDERS: ATTEND Surgery
DX: K57.30 Diverticulosis of large intestine without perforation or abscess without bleeding (principal); N83.201 Unspecified ovarian cyst, right side; N83.202 Unspecified ovarian cyst, left side; I10 Essential (primary) hypertension; E66.9 Obesity, unspecified; F41.9 Anxiety disorder, unspecified; Z79.899 Other long term (current) drug therapy; Z88.8 Allergy status to other drugs, medicaments and biological substances; Z91.011 Allergy to milk products; Z68.41 Body mass index [BMI] 40.0-44.9, adult
CPT/HCPCS: 45378; J2704; J3010; J7120

== ENCOUNTER 2023-12-24 18:32 | Emergency (ER) | payer BC ==
[2023-12-24 21:05] VITALS: BP 173/85; PULSE 88
== END 2023-12-24 21:05 | disposition home or self-care (01) ==
LOC: MW.ED 18:32
DX: M79.604 Pain in right leg (principal); I10 Essential (primary) hypertension; E66.9 Obesity, unspecified; Z90.710 Acquired absence of both cervix and uterus; Z79.899 Other long term (current) drug therapy; Z91.018 Allergy to other foods; Z91.012 Allergy to eggs; Z91.011 Allergy to milk products; Z68.41 Body mass index [BMI] 40.0-44.9, adult
CPT/HCPCS: 93971-26-RT; 93971-RT; 99282; 99283